=== PATIENT | female | born 1980 | race American Indian/Alaskan Native ===

== ENCOUNTER 2017-09-05 19:08 | Emergency (ER) | payer SELFPAY ==
[2017-09-05] MEDS ORDERED: ZOFRAN IV ONE (19:25)
[2017-09-05] MEDS ORDERED: NITRO-BID 2% TP ONE (19:25)
[2017-09-05] MEDS ORDERED: MORPHINE IV ONE (19:25)
[2017-09-05] MEDS ORDERED: ASPIRIN PO ONE (19:27)
--- NOTE | 2017-09-05 19:32 | Emergency Department Report ---
HPI - General Time Seen by Provider: 09/05/17 19:13 - HPI HPI: Room 26 The patient is a 37-year-old female presenting with chief complaint of chest pain. The patient states her symptoms began last night substernal chest pain sharp in nature. The patient states today at 18:00 while at work the pain worsened and she developed left upper extremity numbness and shortness of breath. The patient states she had nausea and dry heaving. The patient's states she became diaphoretic. The patient gives her pain score of 7/10. The patient states she had a stress test last year in [place] but does not recall the results. The patient states she has never had a cardiac catheterization Location: Chest, see above Duration: Constant since last night Quality: Sharp Severity: 7/10 Modifying factors: [see above] Context: [see above] Mode of transportation: EMS ED Past Medical Hx - Past Medical History Previous Medical History?: No - Surgical History Past Surgical History?: No - Family History Family history: no significant - Social History Smoking Status: Current Every Day Smoker (1 pack per day) Substance Use Type: None (denies illicit drug use), Alcohol (occasional) - Medications Home Medications: Home Medications Medication Instructions Recorded Confirmed Last Taken Type No Known Home Medications [No 09/05/17 09/05/17 Unknown History Reported Home Medications] ED Review of Systems ROS: Stated complaint: CHEST PAIN Other details as noted in HPI Constitutional: diaphoresis Eyes: denies: eye pain ENT: denies: throat pain Respiratory: shortness of breath Cardiovascular: chest pain Gastrointestinal: nausea. denies: vomiting Genitourinary: denies: dysuria Musculoskeletal: denies: back pain Neurological: paresthesias. denies: headache Physical Exam - Physical Exam Physical Exam: GENERAL: The patient is well-developed well-nourished female lying on stretcher appearing to be in mild discomfort HEENT: Normocephalic. Atraumatic. Extraocular motions are intact. Patient has moist mucous membranes. NECK: Supple. Trachea midline CHEST/LUNGS: Clear to auscultation. There is no respiratory distress noted. HEART/CARDIOVASCULAR: Regular. There is no tachycardia. There is no gallop rub or murmur. ABDOMEN: Abdomen is soft, nontender. Patient has normal bowel sounds. There is no abdominal distention. SKIN: There is no rash. There is no edema. There is no diaphoresis. NEURO: The patient is awake, alert, and oriented. The patient is cooperative. The patient has normal speech MUSCULOSKELETAL: There is no evidence of acute injury. ED Medical Decision Making - Lab Data Result diagrams: 09/05/17 19:32 09/05/17 19:32 Laboratory Tests 09/05/17 09/05/17 19:32 19:32 WBC 7.0 RBC 4.91 Hgb 12.7 Hct 39.0 MCV 80 MCH 26 L MCHC 33 RDW 13.4 Plt Count 258 Lymph % (Auto) 30.0 [place] % (Auto) 8.5 H Eos % (Auto) 0.6 Baso % (Auto) 2.1 H Lymph # 2.1 [place] # 0.6 Eos # 0.0 Baso # 0.1 Seg Neutrophils % 58.8 Seg Neutrophils # 4.1 Sodium 139 Potassium 3.7 Chloride 102.9 Carbon Dioxide 17 L Anion Gap 23 BUN 8 Creatinine 0.5 L Estimated GFR > 60 BUN/Creatinine Ratio 16 Glucose 76 Calcium 9.0 CK-MB (CK-2) 2.1 Troponin T < 0.010 - EKG Data -: EKG Interpreted by Me EKG shows normal: sinus rhythm Rate: normal - EKG Data Interpretation: nonspecific ST-T wave brando (biphasic T-wave lead 3) - Radiology Data Radiology results: report reviewed (chest x-ray), image reviewed (chest x-ray) interpreted by me: Chest x-ray-no focal infiltrates, no pneumothorax - Differential Diagnosis ACS, pericarditis, GERD Critical care attestation.: If time is entered above; I have spent that time in minutes in the direct care of this critically ill patient, excluding procedure time. ED Disposition Clinical Impression: Chest pain Disposition: OP ADMIT IP TO THIS HOSP Is pt being admited?: Yes Does the pt Need Aspirin: Yes Condition: Fair Instructions: Chest Pain (ED) Time of Disposition: 20:10 (hospitalist paged (Dr Tinsley))
[2017-09-05 19:45] LABS: Basophils # (Auto) 0.1 K/mm3 (0.0-0.1); Basophils % (Auto) 2.1 % (0.0-1.8); Eosinophils % (Auto) 0.6 % (0.0-4.3); Hemoglobin 12.7 gm/dl (10.1-14.3); Lymphocytes # (Auto) 2.1 K/mm3 (1.2-5.4); Mean Corpuscular HGB Conc 33 % (30-34); Mean Corpuscular Volume 80 fl (79-97); Monocytes # (Auto) 0.6 K/mm3 (0.0-0.8); Monocytes % (Auto) 8.5 % (0.0-7.3); Platelet Count 258 K/mm3 (140-440); Red Blood Count 4.91 M/mm3 (3.65-5.03); Red Cell Distribution Width 13.4 % (13.2-15.2)
[2017-09-05 19:46] LABS: Mean Corpuscular Hemoglobin 26 pg (28-32)
[2017-09-05] MEDS ORDERED: SUBLIMAZE IV ONE (19:50)
--- NOTE | 2017-09-05 20:00 | XRay Report ---
FINAL REPORT PROCEDURE: Chest. TECHNIQUE: Portable AP view. HISTORY: Chest pain. COMPARISON: No prior studies are available for comparison. FINDINGS: The heart and mediastinum appear normal. The lungs are clear and well expanded. There are no pleural effusions. The soft tissues and regional skeleton are unremarkable. IMPRESSION: Negative portable chest.
[2017-09-05 20:04] LABS: Creatine Kinase MB 2.1 ng/mL (0.0-4.0)
[2017-09-05 20:06] LABS: BUN/Creatinine Ratio 16; Blood Urea Nitrogen 8 mg/dL (7-17); Hemolysis Index 8
--- NOTE | 2017-09-05 22:05 | Cat Scan Report ---
FINAL REPORT PROCEDURE: CT angiogram chest with contrast. TECHNIQUE: Computerized tomographic angiography of the chest was performed after the IV injection of iodinated nonionic contrast including image processing. The image data was postprocessed using 2-dimensional multiplanar reformatted (MPR) and 3-dimensional (MIP and/or volume rendered) techniques. HISTORY: Chest pain. COMPARISON: No prior studies are available for comparison. FINDINGS: The trachea and central bronchi appear normal. The lungs are clear and well expanded. There are no pleural effusions. The thoracic aorta has a normal caliber without evidence of dissection. The pulmonary arteries enhance normally. There are no filling defects to indicate pulmonary embolism. There is no mediastinal adenopathy. The heart size is normal. The adrenal glands are not enlarged. The thoracic skeleton appears intact. IMPRESSION: Normal study.
[2017-09-05 23:02] VITALS: BP 108/65
== END 2017-09-05 23:38 | disposition admitted as inpatient to this hospital (09) ==
LOC: ED 19:08
DX: R07.89 Other chest pain (principal); R07.9 Chest pain, unspecified; R11.2 Nausea with vomiting, unspecified; R06.02 Shortness of breath; R20.0 Anesthesia of skin; F17.210 Nicotine dependence, cigarettes, uncomplicated
CPT/HCPCS: 36415; 71045; 71275; 80048; 82550; 82553; 83880; 84484; 85025; 85379; 93005; 93010; 96374; 96375; 99285; J2405; J3010; Q9967; 96372

== ENCOUNTER 2020-02-08 08:41 | Emergency (ER) | payer SELFPAY ==
[2020-02-08 08:50] VITALS: BP 116/86
--- NOTE | 2020-02-08 09:40 | XRay Report ---
LEFT HAND 2 VIEWS INDICATION / CLINICAL INFORMATION: Left hand pain and swelling. COMPARISON: None available. FINDINGS: BONES / JOINT(S): There is mild widening of the distance between the scaphoid and lunate bones. No si gnificant arthritis. I see no evidence of fracture or destructive lesion. SOFT TISSUES: No significant abnormality. ADDITIONAL FINDINGS: None. IMPRESSION: Scapholunate dissociation is characteristic of ligamentous injury. Signer Name: Regis Andrade MD Signed: 02/08/2020 9:35 AM Workstation Name: [id number]
--- NOTE | 2020-02-08 09:41 | XRay Report ---
HISTORY:Swelling, pain COMPARISON: None. TECHNIQUE: AP lateral views were obtained FINDINGS: Bones: No fracture or dislocation. Joint spaces: Maintained. Soft tissues: No significant abnormality. Additional findings: None. IMPRESSION: 1. No significant abnormality. Signer Name: Quang Reyna MD Signed: 02/08/2020 9:36 AM Workstation Name: [id number]
--- NOTE | 2020-02-08 11:07 | Emergency Department Report ---
ED Extremity Problem HPI - General Chief complaint: Extremity Problem,Nontraumatic Stated complaint: LT HAND INJURY Time Seen by Provider: 02/08/20 10:57 Source: patient Mode of arrival: Ambulatory Limitations: No Limitations - History of Present Illness Initial comments: Patient is a 39-year-old female presents emergency room with complaints of left wrist and hand pain and swelling that began yesterday morning when she woke up. She denies any fall or injury. She denies remembering sleeping on the arm. 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 She denies ever injuring this hand or wrist in the past. She denies any numbness or weakness. She states that she is right-hand dominant. No past medical history. No allergies to medications. Last menstrual cycle February 04. - Related Data Previous Rx's Medication Instructions Recorded Last Taken Type Pantoprazole [Protonix TAB] 20 mg PO QDAY #30 tablet. 09/05/17 Unknown Rx Naproxen [EC-Naprosyn] 500 mg PO BID PRN #14 tablet. 02/08/20 Unknown Rx Allergies Allergy/AdvReac Type Severity Reaction Status Date / Time No Known Allergies Allergy Unverified 09/05/17 19:21 ED Review of Systems ROS: Stated complaint: LT HAND INJURY Other details as noted in HPI Comment: All other systems reviewed and negative ED Past Medical Hx - Past Medical History Previous Medical History?: No - Surgical History Past Surgical History?: Yes Additional Surgical History: Right leg - Social History Smoking Status: Current Every Day Smoker (1 pack per day) Substance Use Type: None (denies illicit drug use), Alcohol (occasional) - Medications Home Medications: Home Medications Medication Instructions Recorded Confirmed Last Taken Type Pantoprazole [Protonix TAB] 20 mg PO QDAY #30 tablet. 09/05/17 Unknown Rx Naproxen [EC-Naprosyn] 500 mg PO BID PRN #14 tablet. 02/08/20 Unknown Rx ED Physical Exam - General Limitations: No Limitations General appearance: alert, in no apparent distress - Head Head exam: Present: atraumatic, normocephalic - Eye Eye exam: Present: normal appearance - ENT ENT exam: Present: mucous membranes moist - Respiratory Respiratory exam: Absent: respiratory distress, accessory muscle use - Extremities Exam Extremities exam: Present: other (ttp to the left hand overlying the carpal bones, and left lateral wrist, she does have snuffbox ttp, no obvious deformity, mild edema, slightly decreased ROM of the hand secondary to pain, no erythema, no increased warmth, no skin changes, neurovascularly intact) - Neurological Exam Neurological exam: Present: alert, oriented X3 - Psychiatric Psychiatric exam: Present: normal affect, normal mood - Skin Skin exam: Present: warm, dry, intact ED Course Vital Signs 02/08/20 08:49 Temperature 98.3 F Pulse Rate 75 Respiratory 16 Rate Blood Pressure 116/86 [Right] O2 Sat by Pulse 100 Oximetry ED Medical Decision Making - Radiology Data Radiology results: report reviewed Ordering Physician: DIPAK AVILEZ MD Date of Service: 02/08/20 Procedure(s): XR hand 2V LT Accession Number(s): [id number] cc: ED MD RAGHAV Fluoro Time In Minutes: LEFT HAND 2 VIEWS INDICATION / CLINICAL INFORMATION: Left hand pain and swelling. COMPARISON: None available. FINDINGS: BONES / JOINT(S): There is mild widening of the distance between the scaphoid and lunate bones. No significant arthritis. I see no evidence of fracture or destructive lesion. SOFT TISSUES: No significant abnormality. ADDITIONAL FINDINGS: None. IMPRESSION: Scapholunate dissociation is characteristic of ligamentous injury. Signer Name: Papa Andrade MD Signed: 02/08/2020 9:35 AM Workstation Name: [id number] Transcribed By: RT Dictated By: Papa Andrade MD Electronically Authenticated By: Papa Andrade MD Signed Date/Time: 02/08/20934 DD/ 1 TD/TT: HISTORY:Swelling, pain COMPARISON: None. TECHNIQUE: AP lateral views were obtained FINDINGS: Bones: No fracture or dislocation. Joint spaces: Maintained. Soft tissues: No significant abnormality. Additional findings: None. IMPRESSION: 1. No significant abnormality. Signer Name: Quang Reyna MD Signed: 02/08/2020 9:36 AM Workstation Name: [id number] Transcribed By: WG Dictated By: Quang Reyna MD Electronically Authenticated By: Quang Reyna MD Signed Date/Time: 02/08/20935 DD/ 5 TD/TT: - Medical Decision Making Patient is a 39-year-old female presents emergency room with complaints of left wrist and hand pain and swelling that began yesterday morning when she woke up. She denies any fall or injury. She denies remembering sleeping on the arm. 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 She denies ever injuring this hand or wrist in the past. She denies any numbness or weakness. She states that she is right-hand dominant. No past medical history. No allergies to medications. Last menstrual cycle February 04. vitals are normal. on exam: ttp to the left hand overlying the carpal bones, and left lateral wrist, she does have snuffbox ttp, no obvious deformity, mild edema, slightly decreased ROM of the hand secondary to pain, no erythema, no increased warmth, no skin changes, neurovascularly intact. XR left wrist: 1. No significant abnormality. XR left hand: IMPRESSION: Scapholunate dissociation is characteristic of ligamentous injury. Discussed all findings with patient and patient was given her x-ray report. Given that she has point tenderness palpation and her x-ray is showing the dissociation, patient was placed in thumb spica splint by human resources professional and remained neurovascularly intact. Discussed the importance of orthopedic follow- up with patient. Patient given prescription for naproxen. Advised patient Please take medication as prescribed as needed. Follow-up with orthopedic doctor. It is very important that you follow-up. Please do not remove splint. Return to emergency room immediately for any new or worsening symptoms - Differential Diagnosis Strain, sprain, fracture, dislocation, carpal tunnel, tendinitis Critical care attestation.: If time is entered above; I have spent that time in minutes in the direct care of this critically ill patient, excluding procedure time. ED Disposition Clinical Impression: Left wrist pain, Left hand pain Scapho-lunate dissociation Qualifiers: Laterality: left Qualified Code(s): M25.332 - Other instability, left wrist Disposition: DC- TO HOME OR SELFCARE Is pt being admited?: No Does the pt Need Aspirin: No Condition: Stable Additional Instructions: Please take medication as prescribed as needed. Follow-up with orthopedic doctor. It is very important that you follow-up. Please do not remove splint. Return to emergency room immediately for any new or worsening symptoms Prescriptions: Naproxen [EC-Naprosyn] 500 mg PO BID PRN #14 tablet.dr [place] Reason: pain Referrals: PRIMARY CARE, [Primary Care Provider] - 2-3 Days PAPA MADRID MD [Staff Physician] - 2-3 Days [facility] [Provider Group] - 2-3 Days Time of Disposition: 11:08 Print Language: OMANI
== END 2020-02-08 11:19 | disposition home or self-care (01) ==
LOC: ED 08:41
DX: M25.532 Pain in left wrist (principal); M79.642 Pain in left hand; F17.200 Nicotine dependence, unspecified, uncomplicated; M25.332 Other instability, left wrist; Z79.899 Other long term (current) drug therapy
CPT/HCPCS: 99283

== ENCOUNTER 2020-06-13 09:49 | Emergency (ER) | payer SELFPAY ==
[2020-06-13] MEDS ORDERED: METOCLOPRAMIDE 10 MG/2 ML INJ IV STA (09:57)
[2020-06-13] MEDS ORDERED: diphenhydrAMINE 50 MG/ML VIAL IV STA (09:57)
[2020-06-13] MEDS ORDERED: KETOROLAC 30 MG/1 ML INJ IV STA (09:57)
--- NOTE | 2020-06-13 10:05 | Emergency Department Report ---
ED Headache HPI - General Chief Complaint: Headache Stated Complaint: HEADACHE Time Seen by Provider: 06/13/20 09:57 - History of Present Illness Initial Comments: 40-year-old F [place] female with a known history of migraine headache presents emerged department complaining of a flareup of another migraine. States this is a typical migraine presentation for this presenting in the same the usual fashions with no concomitant or new symptoms. Ports no fever, chills, sweats but no hemoptysis hematemesis no blurred vision. Known neck pain. She reports no trauma. She is visiting from [place] and has no medications to avoid her headaches so presents emerge department seeking some relief. Timing/Duration: constant Quality: mild, moderate Head Injury Location: parietal Recent Head Trauma: frequent headaches Allergies/Adverse Reactions: Allergies No Known Allergies Allergy (Verified 06/13/20 09:54) Home Medications: Ambulatory Orders Pantoprazole [Protonix TAB] 20 mg PO QDAY #30 tablet. 09/05/17 Naproxen [EC-Naprosyn] 500 mg PO BID PRN #14 tablet. 02/08/20 Butalb/Acetaminophen/Caffeine [Fioricet 50-300-40 mg CAP] 1 cap PO Q8HR PRN #20 cap 06/13/20 ED Review of Systems ROS: Stated complaint: HEADACHE Other details as noted in HPI Comment: All other systems reviewed and negative Respiratory: cough ED Past Medical Hx - Surgical History Additional Surgical History: Right leg - Social History Smoking Status: Current Every Day Smoker Substance Use Type: None - Medications Home Medications: Home Medications Medication Instructions Recorded Confirmed Last Taken Type Pantoprazole [Protonix TAB] 20 mg PO QDAY #30 tablet. 09/05/17 Unknown Rx Naproxen [EC-Naprosyn] 500 mg PO BID PRN #14 tablet. 02/08/20 Unknown Rx Butalb/Acetaminophen/Caffeine 1 cap PO Q8HR PRN #20 cap 06/13/20 Unknown Rx [Fioricet 50-300-40 mg CAP] ED Physical Exam - General Limitations: No Limitations General appearance: alert, in no apparent distress - Head Head exam: Present: atraumatic, normocephalic - Eye Eye exam: Present: normal appearance. Absent: nystagmus Pupils: Present: other (Negative funduscopic examination) - ENT ENT exam: Present: mucous membranes moist - Neck Neck exam: Present: normal inspection, other (No bruits). Absent: tenderness, meningismus, lymphadenopathy, thyromegaly - Respiratory Respiratory exam: Present: normal lung sounds bilaterally. Absent: respiratory distress, wheezes, rales, accessory muscle use, decreased breath sounds - Cardiovascular Cardiovascular Exam: Present: regular rate, normal rhythm. Absent: systolic murmur, diastolic murmur, rubs, gallop - GI/Abdominal GI/Abdominal exam: Present: soft, normal bowel sounds - Extremities Exam Extremities exam: Present: normal inspection - Back Exam Back exam: Present: normal inspection - Neurological Exam Neurological exam: Present: alert, oriented X3, CN II-XII intact, normal gait - Expanded Neurological Exam Expanded Neurological exam: Absent: memory loss-remote event, memory loss-recent event, expressive aphasia, total aphasia, tremor Patient oriented to: Present: person, place, time Speech: Present: fluid speech Cranial nerves: EOM's Intact: Normal Cerebellar function: Finger to Nose: Normal, [place]: Normal Motor strength exam: RUE: 5, LUE: 5, RLE: 5, LLE: 5 Best Eye Response (Bee): (4) open spontaneously Best Motor Response ([place]): (6) obeys commands Best Verbal Response (Bee): (5) oriented Bee Total: 15 - Psychiatric Psychiatric exam: Present: normal affect, normal mood - Skin Skin exam: Present: warm, dry, intact, normal color. Absent: rash ED Course Vital Signs 06/13/20 09:54 Temperature 98.1 F Pulse Rate 74 Respiratory 20 Rate Blood Pressure 120/82 O2 Sat by Pulse 100 Oximetry ED Medical Decision Making - Medical Decision Making 1. Headache: This patient presents with a headache most consistent with migraine. Differential diagnosis includes migraine versus tension type headache. No headache red flags. Neurologic exam without evidence of meningismus, focal neurologic findings.Based on the patient's history and physical there is very low clinical suspicion for significant intracranial pathology. The headache was NOT sudden onset, NOT maximal at onset, there are NO neurologic findings, the patient does NOT have a fever, the patient does NOT have any jaw claudication, the patient does NOT endorse a clotting disorder, patient DENIES any trauma or eye pain and the headache is NOT associated with dizziness or ataxia. Presentation not consistent with acute intracranial bleed to include SAH (lack of risk factors, headache history). Presentation not consistent with acute PROJECT CONSTRUCTION MANAGER infection to include meningitis or brain abscess, Temporal arteritis unlikely, as is acute angle closure glaucoma given history and physical findings. Presentation not consistent with other acute, emergent causes of headache at this time. Plan to treat symptomatically with pain medication. No indication for imaging/LP at this time. Headache is 100% resolved with with the medication. Plan: pain medication serial reassessment 2. This patient presents with acute cough. Differential diagnosis includes pneumonia, bronchitis, hyperreactive airway disease. Presentation not consistent with acute bacterial pneumonia, influenza, asthma, transient airway hyperresponsiveness. Presentation not consistent with chronic causes of cough (including GERD, asthma, postnasal discharge, medication side effect, CHF, lung cancer or mass). Normal CXR Plan: , supportive care, reassess Critical care attestation.: If time is entered above; I have spent that time in minutes in the direct care of this critically ill patient, excluding procedure time. ED Disposition Clinical Impression: Cephalgia Disposition: DC-01 TO HOME OR SELFCARE Is pt being admited?: No Does the pt Need Aspirin: No Condition: Stable Instructions: Migraine Headache, Sumatriptan tablets, Ibuprofen tablets and capsules, Acetaminophen; Aspirin, ASA; Caffeine tablets, caplets, or geltabs Prescriptions: Butalb/Acetaminophen/Caffeine [Fioricet 50-300-40 mg CAP] 1 cap PO Q8HR PRN #20 cap PRN Reason: headache Referrals: PRIMARY MD ZHANNA [Primary Care Provider] - 3-5 Days SYD AMAYA MD [Staff Physician] - 3-5 Days
--- NOTE | 2020-06-13 10:25 | XRay Report ---
CHEST 2 VIEWS INDICATION / CLINICAL INFORMATION: cough. COMPARISON: None available. FINDINGS: SUPPORT DEVICES: None. HEART / MEDIASTINUM: No significant abnormality. LUNGS / PLEURA: No significant pulmonary or pleural abnormality. No pneumothorax. ADDITIONAL FINDINGS: No significant additional findings. IMPRESSION: 1. No acute findings. Signer Name: Blayne Sofia MD Signed: 06/13/2020 10:21 AM Workstation Name: [id number]
[2020-06-13 11:11] VITALS: BP 133/78
== END 2020-06-13 11:12 | disposition home or self-care (01) ==
LOC: ED 09:49
DX: R51.9 Headache, unspecified (principal); F17.200 Nicotine dependence, unspecified, uncomplicated; Z79.899 Other long term (current) drug therapy
CPT/HCPCS: 71046; 96374; 96375; 99283; J1200; J1885; J2765